=== PATIENT | female | born 1975 | race African-American/Black ===

== ENCOUNTER 2023-02-18 14:17 | Outpatient (RCR) | payer OTHER, SELFPAY | END 2023-02-19 16:33 | disposition home or self-care (01) | LOC: PT 14:17 | PROVIDERS: PCP Family Medicine; Visit Provider Personal Emergency Response Attendant | DX: M25.561 Pain in right knee (principal); M25.571 Pain in right ankle and joints of right foot; M19.071 Primary osteoarthritis, right ankle and foot; M17.11 Unilateral primary osteoarthritis, right knee; M22.41 Chondromalacia patellae, right knee | CPT/HCPCS: 97110; 97162 ==